=== PATIENT | male | born 1970 | race Caucasian/White ===

== ENCOUNTER 2016-12-22 06:09 | Day surgery (SDC) | payer OTHER ==
[2016-12-22] MEDS ORDERED: ceFAZolin 1 GM VIAL ONE (06:26)
[2016-12-22] MEDS ORDERED: LACTATED RINGERS 1,000 ML IV ONE ×2 (06:57→09:02)
[2016-12-22] MEDS ORDERED: LIDOCAINE-MPF 2% 5 ML VIAL IM ONE (07:36)
[2016-12-22] MEDS ORDERED: PROPOFOL 200 MG/20 ML VIAL IVP ONE (07:36)
[2016-12-22] MEDS ORDERED: DEXAMETHASONE 4 MG/ML VIAL IVP ONE (07:36)
[2016-12-22] MEDS ORDERED: HYDROmorphone 1 MG/ML SYRINGE IVP ONE (07:36)
[2016-12-22] MEDS ORDERED: METOCLOPRAMIDE 10 MG/2 ML VIAL IVP ONE (07:36)
[2016-12-22] MEDS ORDERED: SUCCINYLCHOLINE 200 MG/10 ML VIAL IVP ONE (07:36)
[2016-12-22] MEDS ORDERED: MIDAZOLAM 2 MG/2 ML VIAL IVP ONE (07:36)
[2016-12-22] MEDS ORDERED: PHENYLEPHRINE 50 MG/5 ML VIAL IV ONE (07:36)
[2016-12-22] MEDS ORDERED: GLYCOPYRROLATE 1 MG/5 ML VIAL IVP ONE (07:36)
[2016-12-22] MEDS ORDERED: NEOSTIGMINE 1 MG/1 ML 10 ML MDV IVP ONE (07:36)
[2016-12-22] MEDS ORDERED: ROCURONIUM 50 MG/5 ML VIAL IVP ONE (07:36)
[2016-12-22] MEDS ORDERED: KETOROLAC 30 MG/ML VIAL IVP ONE (07:36)
[2016-12-22] MEDS ORDERED: BUPIVACAINE 0.5% PF 30 ML VIAL INFIL ONE ×2 (08:14)
[2016-12-22] MEDS ORDERED: SODIUM CHLORIDE 0.9% 1,000 ML IV ONE (09:02)
[2016-12-22] MEDS: fentaNYL 100 MCG/2 ML VIAL ONE ×2 (09:45→09:50)
[2016-12-22] MEDS ORDERED: oxyCOD/ACETAMIN 5 MG/325 MG TABLET PO ONE (10:12)
== END 2016-12-22 06:10 | disposition home or self-care (01) ==
PROC: 0YU54JZ Supplement Right Inguinal Region with Synthetic Substitute, Percutaneous Endoscopic Approach (ICD-10-PCS; principal; 2016-12-22 07:30)
DX: K40.90 Unilateral inguinal hernia, without obstruction or gangrene, not specified as recurrent (principal); I10 Essential (primary) hypertension; F17.210 Nicotine dependence, cigarettes, uncomplicated; Z82.49 Family history of ischemic heart disease and other diseases of the circulatory system; Z83.3 Family history of diabetes mellitus
CPT/HCPCS: 49650; A9270; C1781; J1170; J7120

== ENCOUNTER 2018-02-01 08:00 | Outpatient (CLI) | payer OTHER ==
[2018-02-01 12:32] LABS: BASOPHILS # (AUTO) 0.1 10^3/uL (0.0-0.1); BASOPHILS % (AUTO) 0.9 %; EOSINOPHILS # (AUTO) 0.4 10^3/uL (0.0-0.7); EOSINOPHILS % (AUTO) 4.6 %; HGB - HEMOGLOBIN 14.5 g/dL (14.0-18.0); LYMPHOCYTES # (AUTO) 2.7 10^3/uL (1.5-3.5); LYMPHOCYTES % (AUTO) 29.7 %; MEAN CORPUSCULAR HEMOGLOBIN 28.4 pg (27.0-31.0); MEAN CORPUSCULAR HGB CONC 33.5 g/dL (32.0-36.0); MEAN CORPUSCULAR VOLUME 84.8 fL (80.0-94.0); MEAN PLATELET VOLUME 9.7 fL (7.4-11.4); MONOCYTES # (AUTO) 0.5 10^3/uL (0.0-1.0); MONOCYTES % (AUTO) 5.6 %; NEUTROPHILS # (AUTO) 5.4 10^3/uL (1.5-6.6); NEUTROPHILS % (AUTO) 59.2 %; PLT - PLATELET COUNT 251 10^3/uL (130-450); RED BLOOD COUNT 5.11 10^6/uL (4.70-6.10); RED CELL DISTRIBUTION WIDTH 13.1 % (12.0-15.0); WHITE BLOOD COUNT 9.1 x10^3/uL (4.8-10.8)
[2018-02-01 12:38] LABS: ALBUMIN 4.5 g/dL (3.2-5.5); ALBUMIN/GLOBULIN RATIO 1.3 (1.0-2.2); ALKALINE PHOSPHATASE 42 IU/L (42-121); ALT ALANINE AMINOTRANSFERASE 21 IU/L (10-60); AST ASPARTATE AMINOTRANSFERASE 17 IU/L (10-42); BILIRUBIN,TOTAL 0.5 mg/dL (0.2-1.0); BUN - BLOOD UREA NITROGEN 20 mg/dL (6-20); CALCIUM 9.4 mg/dL (8.5-10.3); CARBON DIOXIDE - CO2 26 mmol/L (21-32); CHLORIDE 101 mmol/L (101-111); CHOL/HDL RATIO 6.1 (<5.0); CHOLESTEROL 221 mg/dL; CREATININE 0.9 mg/dL (0.6-1.2); GFR - MDRD 91 (>89); GLUCOSE 104 mg/dL (70-100); HDL CHOLESTEROL 36 mg/dL; LDL CHOLESTEROL,CALCULATED 155 mg/dL; LDL/HDL RATIO 4.3 (<3.6); SODIUM 135 mmol/L (135-145); VLDL CHOLESTEROL 30 mg/dL
== END 2018-02-01 08:01 | disposition home or self-care (01) ==
LOC: LAB.WCP 08:00
PROVIDERS: ATTEND Family Medicine
DX: I10 Essential (primary) hypertension (principal); Z79.899 Other long term (current) drug therapy
CPT/HCPCS: 36415; 80053; 80061; 83721; 84443; 85025

== ENCOUNTER 2019-02-10 09:08 | Emergency (ER) | payer OTHER ==
[2019-02-10] MEDS ORDERED: IOVERSOL 320 100 ML VIAL IVP ONE ×3 (09:09→18:01)
[2019-02-10 09:45] LABS: BASOPHILS # (AUTO) 0.1 10^3/uL (0.0-0.1); BASOPHILS % (AUTO) 1.1 %; EOSINOPHILS # (AUTO) 0.4 10^3/uL (0.0-0.7); EOSINOPHILS % (AUTO) 4.9 %; HGB - HEMOGLOBIN 13.8 g/dL (14.0-18.0); LYMPHOCYTES % (AUTO) 33.7 %; MEAN CORPUSCULAR HEMOGLOBIN 28.2 pg (27.0-31.0); MEAN CORPUSCULAR HGB CONC 33.2 g/dL (32.0-36.0); MEAN CORPUSCULAR VOLUME 84.8 fL (80.0-94.0); MEAN PLATELET VOLUME 8.7 fL (7.4-11.4); MONOCYTES # (AUTO) 0.7 10^3/uL (0.0-1.0); MONOCYTES % (AUTO) 7.6 %; NEUTROPHILS # (AUTO) 4.7 10^3/uL (1.5-6.6); NEUTROPHILS % (AUTO) 52.7 %; PLT - PLATELET COUNT 244 10^3/uL (130-450); RED CELL DISTRIBUTION WIDTH 13.3 % (12.0-15.0)
--- NOTE | 2019-02-10 10:05 | XRAY Report ---
Reason: chest pain Procedure Date: 02/10/2019 Accession Number: [id number] / [id number] Procedure: XR - Chest 1 View X-Ray CPT Code: 19547 FULL RESULT: EXAM: CHEST RADIOGRAPHY EXAM DATE: 02/10/2019 09:33 AM. CLINICAL HISTORY: Chest pain radiating to left arm. COMPARISON: XR CHEST 1 VIEWS 01/27/2011 1:19 AM. TECHNIQUE: 1 view. FINDINGS: Lungs/Pleura: Lung volumes are diminished compared to last exam. No focal consolidation identified. Some minimal linear opacity at the left base could represent atelectasis. Mediastinum: Within exam limitations, the cardiomediastinal contour is normal. Other: None. IMPRESSION: 1. Possible mild linear atelectasis at the left base. 2. Low lung volumes. RADIA
--- NOTE | 2019-02-10 10:05 | ED Physician Documentation ---
PD HPI CHEST PAIN - Stated complaint Stated Complaint: CHEST PAIN - Chief complaint Chief Complaint: Cardiac - History obtained from History obtained from: Patient - History of Present Illness Timing - onset: Today Timing - onset during: Light activity (getting ready for work) Timing - duration: Hours (1) Timing - details: Abrupt onset, Still present Quality: Tightness, Aching, Sharp (left anterior chest pain, sharp with movement and breathing, but pressure feeling along with it.). No: Pressure Location: Left chest Radiation: No: Jaw, Neck, Back Worsened by: Inspiration, Movement. No: Palpation Associated symptoms: Shortness of air, Diaphoresis, Nausea, Feeling faint / dizzy. No: Palpitations Similar symptoms before: Has not had sx before Recently seen: Not recently seen Review of Systems Constitutional: denies: Fever, Chills, Myalgias Nose: denies: Rhinorrhea / runny nose, Congestion Throat: denies: Sore throat Cardiac: reports: Chest pain / pressure, Other (recent motorcycle trip for 4-5 days.). denies: Palpitations, Pedal edema, Calf pain Respiratory: reports: Dyspnea. denies: Cough, Wheezing PD PAST MEDICAL HISTORY - Past Medical History Past Medical History: Yes Cardiovascular: Hypertension Respiratory: None Endocrine/Autoimmune: None GI: None : None HEENT: Chronic vision loss, Other Psych: None Musculoskeletal: None Derm: None - Past Surgical History Past Surgical History: Yes Ortho: Other - Present Medications Home Medications: Ambulatory Orders Medication Instructions Recorded Confirmed Lisinopril 20 mg PO BID 12/18/16 02/10/19 Hydrocodone/Acetaminophen [[place] 1 each PO Q6H PRN #15 tablet 02/10/19 5-325 Tablet] - Allergies Allergies/Adverse Reactions: Allergies Allergy/AdvReac Type Severity Reaction Status Date / Time No Known Drug Allergies Allergy Verified 02/10/19 09:17 - Social History Does the pt smoke?: No Smoking Status: Never smoker Does the pt drink ETOH?: Yes Does the pt have substance abuse?: No - Immunizations Immunizations are current?: Yes - POLST Patient has POLST: No PD ED PE NORMAL - Vitals Vital signs reviewed: Yes - General General: Alert and oriented X 3, Well developed/nourished, Other (appears in pain with splinting of breathing moderately. Holding left chest. ) - HEENT HEENT: Moist mucous membranes, Pharynx benign - Neck Neck: Supple, no meningeal sign, No adenopathy - Cardiac Cardiac: RRR, No murmur - Respiratory Respiratory: Clear bilaterally, Other (no chestwall tenderness) - Abdomen Abdomen: Soft, Non tender - Derm Derm: Normal color, Warm and dry, No rash - Extremities Extremities: Normal ROM s pain, No edema, No calf tenderness / cord - Neuro Neuro: Alert and oriented X 3, No motor deficit, Normal speech Eye Opening: Spontaneous Motor: Obeys Commands Verbal: Oriented GCS Score: 15 - Psych Psych: Normal mood Results - Vitals Vitals: Vital Signs - 24 hr 02/10/19 02/10/19 02/10/19 09:15 10:01 12:48 Temperature 36.4 C L Heart Rate 84 76 77 Respiratory 20 14 16 Rate Blood Pressure 155/88 H 148/88 H 107/79 O2 Saturation 98 96 97 Oxygen O2 Source Room air - EKG (time done) 09:09 Rate: Rate (enter#) (95) Rhythm: NSR [place]: Normal Intervals: Normal [place] QRS: Normal Ischemia: Normal ST segments. No: ST elevation c/w ischemia, ST depression Compare to prior EKG: Old EKG unavailable - Labs Labs: Laboratory Tests 02/10/19 02/10/19 02/10/19 09:28 09:28 09:28 WBC 9.0 RBC 4.90 Hgb 13.8 L Hct 41.6 L MCV 84.8 MCH 28.2 MCHC 33.2 RDW 13.3 Plt Count 244 MPV 8.7 Neut # (Auto) 4.7 Lymph # (Auto) 3.0 [place] # (Auto) 0.7 Eos # (Auto) 0.4 Baso # (Auto) 0.1 Absolute Nucleated RBC 0.00 Nucleated RBC % 0.0 Sodium 137 Potassium 3.8 Chloride 101 Carbon Dioxide 25 Anion Gap 11.0 BUN 15 Creatinine 0.9 Estimated GFR (MDRD) 90 Glucose 113 H Calcium 9.8 Total Bilirubin 0.5 AST 17 ALT 20 Alkaline Phosphatase 47 Troponin I < 0.04 Total Protein 8.1 Albumin 4.5 Globulin 3.6 Albumin/Globulin Ratio 1.3 Lipase 26 02/10/19 11:48 WBC RBC Hgb Hct MCV MCH MCHC RDW Plt Count MPV Neut # (Auto) Lymph # (Auto) [place] # (Auto) Eos # (Auto) Baso # (Auto) Absolute Nucleated RBC Nucleated RBC % Sodium Potassium Chloride Carbon Dioxide Anion Gap BUN Creatinine Estimated GFR (MDRD) Glucose Calcium Total Bilirubin AST ALT Alkaline Phosphatase Troponin I < 0.04 Total Protein Albumin Globulin Albumin/Globulin Ratio Lipase - Rads (name of study) chest xray Radiology: Prelim report reviewed (some atelectasis lower left), See rad report chest CT angio Radiology: Prelim report reviewed (no PEs nor other acute process. ), See rad report PD MEDICAL DECISION MAKING - ED course Complexity details: reviewed results (chest xray, labs, CT chest are all okay. Presume pleurisy or musculoskeletal. ), considered differential (will evaluate for serious causes of the left chest pain. Had recent motorcycle trip for days, and has abrupt pleuritic chest pain, will need to consider PE.), d/w patient Departure - Departure Disposition: 01 Home, Self Care Clinical Impression: Chest pain, rule out acute myocardial infarction Chest pain Qualifiers: Chest pain type: chest pain on breathing Qualified Code(s): R07.1 - Chest pain on breathing Condition: Stable Record reviewed to determine appropriate education?: Yes Instructions: ED Chest Pain Pleurisy Prescriptions: Hydrocodone/Acetaminophen [[place] 5-325 Tablet] 1 each PO Q6H PRN #15 tablet PRN Reason: Pain Comments: Stay well-hydrated. Use some anti-inflammatory such as naproxen or ibuprofen 2- 3 times a day for the next 5 to 7 days. Take with food so it does not bother her stomach. Add Tylenol or hydrocodone if needed for pain. I presume your pain is from inflammation in the musculoskeletal system or on the surface of the lung (pleurisy). There is no signs of more serious causes based on your blood tests and imaging test today. There is no signs of heart attack, blood clots, pneumonia, collapsed lung, vascular problems, etc. Recheck with your primary care if the pain has not improved however over the next several days to week. Discharge Date/Time: 02/10/19 12:48
[2019-02-10] MEDS ORDERED: MORPHINE 10 MG/ML VIAL IVP STA (10:23)
[2019-02-10] MEDS ORDERED: KETOROLAC 30 MG/ML VIAL IVP STA (10:23)
[2019-02-10 10:46] LABS: ALBUMIN 4.5 g/dL (3.2-5.5); ALBUMIN/GLOBULIN RATIO 1.3 (1.0-2.2); BILIRUBIN,TOTAL 0.5 mg/dL (0.2-1.0); CALCIUM 9.8 mg/dL (8.5-10.3); CREATININE 0.9 mg/dL (0.6-1.2); TOTAL PROTEIN 8.1 g/dL (6.7-8.2)
--- NOTE | 2019-02-10 11:30 | CT Report ---
Reason: left chest pain today; recent trip Procedure Date: 02/10/2019 Accession Number: [id number] / [id number] Procedure: CT - ANGIO CHEST W/WO CPT Code: FULL RESULT: EXAM: CT ANGIOGRAM CHEST EXAM DATE: 02/10/2019 11:07 AM. CLINICAL HISTORY: Left chest pain. Recent trip. Possible pulmonary emboli. COMPARISON: CHEST 1 VIEW 02/10/2019 9:22 AM. TECHNIQUE: Routine helical imaging was performed through the chest in the pulmonary arterial phase. IV Contrast: 86 mL Isovue 320. Reconstructions: Coronal 3-D MIP reconstructions.Sagittal and coronal. In accordance with CT protocol optimization, one or more of the following dose reduction techniques were utilized for this exam: automated exposure control, adjustment of mA and/or KV based on patient size, or use of iterative reconstructive technique. FINDINGS: Pulmonary Arteries: Diagnostic quality: Adequate through the segmental arteries. No evidence for acute or chronic pulmonary emboli. RV/LV is within normal limits. There is no interventricular septal bowing. There is no reflux of contrast material in the IVC. Lungs/Pleura: No focal parenchymal consolidation or pleural effusion. There is an incidental 10 mm diameter perifissural nodule within the minor fissure of no clinical significance. Mediastinum: Normal. No cardiac enlargement or adenopathy. Thoracic Aorta: Unremarkable. Upper Abdomen: Unremarkable. Other: None. IMPRESSION: 1. Normal CT pulmonary angiogram. 2. Benign small perifissural nodule minor fissure of no significance. RADIA
[2019-02-10] MEDS ORDERED: DEXAMETHASONE 10 MG/ML VIAL IVP STA (12:34)
[2019-02-10] MEDS ORDERED: ACETAMINOPHEN 325 MG TABLET PO STA (12:34)
[2019-02-10 12:49] VITALS: BP 107/79
== END 2019-02-10 12:48 | disposition home or self-care (01) ==
LOC: ED 09:08
DX: R07.89 Other chest pain (principal); R07.1 Chest pain on breathing; I10 Essential (primary) hypertension
CPT/HCPCS: 36415; 71045; 71275; 80053; 83690; 84484; 85025; 93005; 96374; 96375; 99283; A9270; Q9967

== ENCOUNTER 2021-08-06 08:00 | Outpatient (CLI) | payer OTHER ==
[2021-08-06 12:22] LABS: BASOPHILS # (AUTO) 0.1 10^3/uL (0.0-0.1); BASOPHILS % (AUTO) 1.1 %; EOSINOPHILS # (AUTO) 0.3 10^3/uL (0.0-0.7); EOSINOPHILS % (AUTO) 3.3 %; HCT - HEMATOCRIT 43.1 % (42.0-52.0); HGB - HEMOGLOBIN 13.7 g/dL (14.0-18.0); LYMPHOCYTES # (AUTO) 2.6 10^3/uL (1.5-3.5); LYMPHOCYTES % (AUTO) 27.8 %; MEAN CORPUSCULAR HEMOGLOBIN 28.1 pg (27.0-31.0); MEAN CORPUSCULAR HGB CONC 31.8 g/dL (32.0-36.0); MEAN CORPUSCULAR VOLUME 88.3 fL (80.0-94.0); MEAN PLATELET VOLUME 11.1 fL (7.4-11.4); MONOCYTES # (AUTO) 0.6 10^3/uL (0.0-1.0); MONOCYTES % (AUTO) 5.9 %; NEUTROPHILS # (AUTO) 5.7 10^3/uL (1.5-6.6); NEUTROPHILS % (AUTO) 61.6 %; PLT - PLATELET COUNT 291 10^3/uL (130-450); RED BLOOD COUNT 4.88 10^6/uL (4.70-6.10); RED CELL DISTRIBUTION WIDTH 12.9 % (12.0-15.0); WHITE BLOOD COUNT 9.3 x10^3/uL (4.8-10.8)
[2021-08-06 12:45] LABS: ALBUMIN 4.5 g/dL (3.2-5.5); ALBUMIN/GLOBULIN RATIO 1.3 (1.0-2.2); ALKALINE PHOSPHATASE 54 IU/L (42-121); ALT ALANINE AMINOTRANSFERASE 21 IU/L (10-60); AST ASPARTATE AMINOTRANSFERASE 14 IU/L (10-42); BILIRUBIN,TOTAL 0.3 mg/dL (0.2-1.0); BUN - BLOOD UREA NITROGEN 23 mg/dL (6-20); CALCIUM 9.9 mg/dL (8.5-10.3); CARBON DIOXIDE - CO2 27 mmol/L (21-32); CHLORIDE 101 mmol/L (101-111); CHOL/HDL RATIO 5.7 (<5.0); CHOLESTEROL 232 mg/dL; CREATININE 0.8 mg/dL (0.6-1.2); GFR - MDRD 103 (>89); GLUCOSE 114 mg/dL (70-100); HDL CHOLESTEROL 41 mg/dL; LDL CHOLESTEROL,CALCULATED 174 mg/dL; LDL/HDL RATIO 4.2 (<3.6); POTASSIUM 4.1 mmol/L (3.5-5.0); SODIUM 139 mmol/L (135-145); TOTAL PROTEIN 8.1 g/dL (6.7-8.2); TRIGLYCERIDES 83 mg/dL; VLDL CHOLESTEROL 17 mg/dL
== END 2021-08-06 08:01 | disposition home or self-care (01) ==
LOC: LAB.WCP 08:00
PROVIDERS: ATTEND Family Medicine
DX: I10 Essential (primary) hypertension (principal); E78.5 Hyperlipidemia, unspecified; Z12.5 Encounter for screening for malignant neoplasm of prostate
CPT/HCPCS: 36415; 80053; 80061; 83721; 84153; 85025

== ENCOUNTER 2021-08-24 11:44 | Emergency (ER) | payer OTHER ==
[2021-08-24 12:14] LABS: BASOPHILS # (AUTO) 0.1 10^3/uL (0.0-0.1); EOSINOPHILS # (AUTO) 0.3 10^3/uL (0.0-0.7); EOSINOPHILS % (AUTO) 2.5 %; HGB - HEMOGLOBIN 13.6 g/dL (14.0-18.0); LYMPHOCYTES # (AUTO) 3.1 10^3/uL (1.5-3.5); LYMPHOCYTES % (AUTO) 27.4 %; MEAN CORPUSCULAR HEMOGLOBIN 29.1 pg (27.0-31.0); MEAN CORPUSCULAR VOLUME 85.7 fL (80.0-94.0); MEAN PLATELET VOLUME 10.4 fL (7.4-11.4); MONOCYTES # (AUTO) 0.7 10^3/uL (0.0-1.0); MONOCYTES % (AUTO) 5.8 %; NEUTROPHILS # (AUTO) 7.2 10^3/uL (1.5-6.6); PLT - PLATELET COUNT 289 10^3/uL (130-450); RED BLOOD COUNT 4.67 10^6/uL (4.70-6.10); RED CELL DISTRIBUTION WIDTH 12.5 % (12.0-15.0); WHITE BLOOD COUNT 11.4 x10^3/uL (4.8-10.8)
[2021-08-24] MEDS ORDERED: DEXAMETHASONE 10 MG/ML VIAL IVP STA (12:20)
[2021-08-24] MEDS ORDERED: KETOROLAC 30 MG/ML VIAL IVP STA (12:20)
--- NOTE | 2021-08-24 12:24 | XRAY Report ---
PROCEDURE: Chest 1 View X-Ray INDICATIONS: Chest pain TECHNIQUE: One view of the chest was acquired. COMPARISON: 02/10/2019 FINDINGS: Surgical changes and devices: None. Lungs and pleura: No pleural effusions or pneumothorax. Lungs are clear. Mediastinum: Mediastinal contours appear normal. Heart size is normal. Bones and chest wall: No suspicious bony lesions. Overlying soft tissues appear unremarkable. IMPRESSION: No acute cardiopulmonary process demonstrated radiographically. Reviewed by: Trever Cedeno MD on 08/24/2021 12:23 PM PST Approved by: Trever Cedeno MD on 08/24/2021 12:23 PM PST Station ID: [id number]
--- NOTE | 2021-08-24 12:26 | ED Physician Documentation ---
PD HPI CHEST PAIN - Stated complaint Stated Complaint: L ARM NUMB, NAUSEA - Chief complaint Chief Complaint: Cardiac - History obtained from History obtained from: Patient - History of Present Illness Timing - onset: How many months ago (1) Timing - onset during: Rest Timing - duration: Months (1) Timing - details: Gradual onset, Still present Quality: Sharp, Pain Location: Left chest Radiation: Left upper extremity Improved by: Nothing Worsened by: Other (nothing) Associated symptoms: Nausea, Feeling faint / dizzy. No: Shortness of air, Diaphoresis, Vomiting, General Weakness, Palpitations, Cough Similar symptoms before: Diagnosis (atypical chest pain) Recently seen: Clinic - Additional information Additional information: 50-year-old male reports a pain to his left anterior chest and radiation of this pain down his arm with numbness to the arm. He points to the upper lateral chest wall and over his shoulder. He denies any prior injury to his neck. He has had similar symptoms for the past several months and these usually do not last continuously. He has had continuous pain since yesterday and he felt several times that he had some diaphoresis associated with this he did not develop shortness of breath. Review of Systems Constitutional: denies: Fever Ears: denies: Ear pain Nose: denies: Congestion Throat: denies: Sore throat Cardiac: reports: Chest pain / pressure. denies: Palpitations, Pedal edema, Calf pain Respiratory: denies: Dyspnea, Cough, Wheezing GI: reports: Nausea. denies: Abdominal Pain, Vomiting, Constipation, Diarrhea : denies: Dysuria, Frequency PD PAST MEDICAL HISTORY - Past Medical History Cardiovascular: Hypertension, High cholesterol Respiratory: None Endocrine/Autoimmune: None GI: None : None HEENT: Chronic vision loss, Other Psych: None Musculoskeletal: None Derm: None - Past Surgical History Past Surgical History: Yes Ortho: Other - Present Medications Home Medications: Ambulatory Orders Medication Instructions Recorded Confirmed Lisinopril 20 mg PO BID 12/18/16 08/24/21 Hydrocodone/Acetaminophen [[place] 1 each PO Q6H PRN #15 tablet 02/10/19 5-325 Tablet] Atorvastatin [Lipitor] 20 mg PO DAILY 08/24/21 08/24/21 - Allergies Allergies/Adverse Reactions: Allergies Allergy/AdvReac Type Severity Reaction Status Date / Time No Known Drug Allergies Allergy Verified 08/24/21 11:54 - Social History Does the pt smoke?: No Smoking Status: Never smoker Does the pt drink ETOH?: Yes Does the pt have substance abuse?: No - Immunizations Immunizations are current?: Yes - POLST Patient has POLST: No PD ED PE NORMAL - Vitals Vital signs reviewed: Yes (hypertensive ) - General General: Alert and oriented X 3, No acute distress, Well developed/nourished - HEENT HEENT: Atraumatic, PERRL, EOMI - Neck Neck: Supple, no meningeal sign, No bony TTP - Cardiac Cardiac: RRR, No murmur - Respiratory Respiratory: No respiratory distress, Clear bilaterally, Other (no chest wall point tenderness) - Abdomen Abdomen: Soft, Non tender - Back Back: No CVA TTP, No spinal TTP - Derm Derm: Normal color, Warm and dry, No rash - Extremities Extremities: No deformity, No edema, Other (full ROM to the LUE without exacerbation of pain or numbness) - Neuro Neuro: Alert and oriented X 3, materials technician 2-12 intact, No motor deficit, No sensory deficit, Normal speech Eye Opening: Spontaneous Motor: Obeys Commands Verbal: Oriented GCS Score: 15 - Psych Psych: Normal mood, Normal affect Results - Vitals Vitals: Vital Signs - 24 hr 08/24/21 08/24/21 08/24/21 11:45 11:57 14:04 Temperature 37.2 C 36.3 C L Heart Rate 85 90 81 Respiratory 15 21 18 Rate Blood Pressure 139/83 H 139/83 H 120/75 O2 Saturation 97 100 97 Oxygen O2 Source Room air - EKG (time done) 1152 Rate: Rate (enter#) (88) Ischemia: ST elevation c/w repol (isolated to V4) Compare to prior EKG: Unchanged from prior EKG (SPT 02-10-2019 no changes) Computer interpretation: Agree with computer - Labs Labs: Laboratory Tests 08/24/21 08/24/21 08/24/21 12:05 12:05 12:05 WBC 11.4 H RBC 4.67 L Hgb 13.6 L Hct 40.0 L MCV 85.7 MCH 29.1 MCHC 34.0 RDW 12.5 Plt Count 289 MPV 10.4 Neut # (Auto) 7.2 H Lymph # (Auto) 3.1 [place] # (Auto) 0.7 Eos # (Auto) 0.3 Baso # (Auto) 0.1 Absolute Nucleated RBC 0.00 Nucleated RBC % 0.0 D-Dimer Sodium 133 L Potassium 3.8 Chloride 99 L Carbon Dioxide 24 Anion Gap 10.0 BUN 16 Creatinine 0.8 Estimated GFR (MDRD) 103 Glucose 112 H Calcium 9.5 Total Bilirubin 0.7 AST 16 ALT 22 Alkaline Phosphatase 49 Troponin I High Sens 2.4 Total Protein 8.0 Albumin 4.7 Globulin 3.3 Albumin/Globulin Ratio 1.4 Lipase 22 08/24/21 12:54 WBC RBC Hgb Hct MCV MCH MCHC RDW Plt Count MPV Neut # (Auto) Lymph # (Auto) [place] # (Auto) Eos # (Auto) Baso # (Auto) Absolute Nucleated RBC Nucleated RBC % D-Dimer < 200.0 L Sodium Potassium Chloride Carbon Dioxide Anion Gap BUN Creatinine Estimated GFR (MDRD) Glucose Calcium Total Bilirubin AST ALT Alkaline Phosphatase Troponin I High Sens Total Protein Albumin Globulin Albumin/Globulin Ratio Lipase - Rads (name of study) chest Radiology: Prelim report reviewed (Impression: No acute cardiopulmonary process demonstrated radiographically.), EMP read indepedently, See rad report PD MEDICAL DECISION MAKING - ED course Complexity details: reviewed results, re-evaluated patient, considered differential, d/w patient ED course: 50-year-old male with numbness to the left arm and hand pain to the left anterior chest does not have point tenderness or modifiable factors to his chest pain. I suspect his pain is coming from his neck and his cardiac work-up is entirely negative including electrocardiogram troponin and D-dimer as well as chest x-ray. The patient has had the symptoms previously a number of times with a shorter timeframe. He is administered dexamethasone and Toradol here in the emergency department he has some slight improvement. Departure - Departure Disposition: 01 Home, Self Care Clinical Impression: Cervical radiculopathy, Atypical chest pain Condition: Stable Instructions: ED Chest Pain Atypical Unkn Cause, ED Cervical Radiculopathy Follow-Up: Marianne Melo DO [Primary Care Provider] - Comments: Quang today there is no evidence that the pain you are having in your chest is related to your heart. It is likely related to a pinched nerve in your neck and this pinched nerve resulting in some numbness to your left arm. The pain associated with this can sometimes be severe. You have been given some dexamethasone which may improve your condition temporarily. A follow-up for MRI of your neck is indicated and you will require a referral from your primary care doctor for this. Follow-up with Dr. Melo Discharge Date/Time: 08/24/21 14:12
[2021-08-24 12:38] LABS: ALBUMIN 4.7 g/dL (3.2-5.5); ALBUMIN/GLOBULIN RATIO 1.4 (1.0-2.2); BILIRUBIN,TOTAL 0.7 mg/dL (0.2-1.0); CALCIUM 9.5 mg/dL (8.5-10.3); CREATININE 0.8 mg/dL (0.6-1.2); POTASSIUM 3.8 mmol/L (3.5-5.0)
[2021-08-24 14:05] VITALS: BP 120/75
== END 2021-08-24 14:12 | disposition home or self-care (01) ==
LOC: ED 11:44
DX: M54.12 Radiculopathy, cervical region (principal); R07.89 Other chest pain; I10 Essential (primary) hypertension; E78.00 Pure hypercholesterolemia, unspecified
CPT/HCPCS: 36415; 80053; 83690; 84484; 85025; 85379; 93005; 96374; 99284

== ENCOUNTER 2022-10-07 20:24 | Emergency (ER) | payer OTHER ==
--- NOTE | 2022-10-07 20:44 | ED Physician Documentation ---
History of Present Illness - Stated complaint Stated Complaint: CONSTIPATED - Chief complaint Chief Complaint: Abd Pain - Additonal information Additional information: 51-year-old male presents emergency department for evaluation of constipation. Reports symptoms started 2 weeks ago. The first 2 days after not having a bowel movement he tried [id number] laxatives but they did not work so he began taking MiraLAX; two glass full a day for the last week. He states that despite taking this he is only having liquid output but not what he would have expected in terms of stool formation. He is also beginning to have some left-sided abdominal pain and low back pain and subjective fevers He has never had a colonoscopy; he missed his screening colonoscopy 2 years ago due to pandemic. Past medical history significant for hypertension. He is not anticoagulated. Review of Systems Constitutional: reports: Reviewed and negative Cardiac: reports: Reviewed and negative Respiratory: reports: Reviewed and negative GI: reports: Abdominal Pain, Constipation. denies: Bloody / black stool : reports: Reviewed and negative Skin: reports: Reviewed and negative Musculoskeletal: reports: Reviewed and negative PD PAST MEDICAL HISTORY - Past Medical History Cardiovascular: Hypertension, High cholesterol Respiratory: None Endocrine/Autoimmune: None GI: None : None HEENT: Chronic vision loss, Other Psych: None Musculoskeletal: None Derm: None - Past Surgical History Past Surgical History: Yes Ortho: Other - Present Medications Home Medications: Ambulatory Orders Medication Instructions Recorded Confirmed Lisinopril 20 mg PO BID 12/18/16 10/07/22 Atorvastatin [Lipitor] 20 mg PO DAILY 08/24/21 10/07/22 Metoprolol Succinate 100 mg PO DAILY 10/07/22 10/07/22 amLODIPine [Norvasc] 5 mg PO DAILY 10/07/22 10/07/22 hydroCHLOROthiazide [Hydrodiuril] 12.5 mg PO DAILY 10/07/22 10/07/22 - Allergies Allergies/Adverse Reactions: Allergies Allergy/AdvReac Type Severity Reaction Status Date / Time No Known Drug Allergies Allergy Verified 10/07/22 21:00 - Social History Does the pt smoke?: No Smoking Status: Never smoker Does the pt drink ETOH?: Yes Does the pt have substance abuse?: No - Immunizations Immunizations are current?: Yes - POLST Patient has POLST: No PD ED PE NORMAL - General General: Alert and oriented X 3, No acute distress, Well developed/nourished - HEENT HEENT: Atraumatic, Moist mucous membranes - Neck Neck: Supple, no meningeal sign, No adenopathy - Cardiac Cardiac: RRR, No murmur - Respiratory Respiratory: No respiratory distress, Clear bilaterally - Abdomen Abdomen: Normal bowel sounds, Soft. No: Non tender (Mild tenderness in the left lower quadrant without guarding or rebound. No flank or CVA tenderness elicited) - Male Male : Foam Rubber Curer present - Rectal Rectal: Other (No stool felt in the rectal vault. Nontender exam) - Derm Derm: Normal color, Warm and dry - Extremities Extremities: No deformity - Neuro Neuro: Alert and oriented X 3 Eye Opening: Spontaneous Motor: Obeys Commands Verbal: Oriented GCS Score: 15 Results - Vitals Vitals: Vital Signs - 24 hr 10/07/22 10/07/22 10/07/22 20:28 20:32 21:04 Temperature 36.4 C L 36.5 C Heart Rate 107 H 107 H 97 Respiratory 18 18 18 Rate Blood Pressure 163/103 H 163/103 H 154/98 H O2 Saturation 99 99 99 Oxygen O2 Source Room air - Labs Labs: Laboratory Tests 10/07/22 10/07/22 10/07/22 20:44 20:44 21:27 WBC 11.5 H RBC 4.86 Hgb 13.3 L Hct 41.4 L MCV 85.2 MCH 27.4 MCHC 32.1 RDW 12.8 Plt Count 287 MPV 9.9 Neut # (Auto) 6.9 H Lymph # (Auto) 3.5 [place] # (Auto) 0.7 Eos # (Auto) 0.2 Baso # (Auto) 0.1 Absolute Nucleated RBC 0.00 Nucleated RBC % 0.0 Sodium 133 L Potassium 3.8 Chloride 94 L Carbon Dioxide 21 Anion Gap 18.0 H BUN 18 Creatinine 0.9 Estimated GFR (MDRD) 89 Glucose 95 Calcium 9.7 Total Bilirubin 0.7 AST 20 ALT 29 Alkaline Phosphatase 53 Total Protein 8.4 H Albumin 4.7 Globulin 3.7 Albumin/Globulin Ratio 1.3 Lipase 24 Urine Color YELLOW Urine Clarity CLEAR Urine pH 6.0 Ur Specific [place] 1.020 Urine Protein NEGATIVE Urine Glucose (UA) NEGATIVE Urine Ketones NEGATIVE Urine Occult Blood NEGATIVE Urine Nitrite NEGATIVE Urine Bilirubin NEGATIVE Urine Urobilinogen 0.2 (NORMAL) Ur Leukocyte Esterase NEGATIVE Ur Microscopic Review NOT INDICATED Urine Culture Comments NOT INDICATED PD Medical Decision Making - ED course Complexity details: reviewed results, re-evaluated patient, considered differential, d/w patient ED course: 51-year-old male presents emergency department for reported constipation that began 2 weeks ago. Initially unresolved with [id number] stool softeners so he began taking MiraLAX twice daily for the last week. He states he simply having liquid output from his rectum but not formed stools as he would anticipate. He is also began to have some left-sided abdominal pain and low back pain. No fevers. He has never received a screening colonoscopy. On exam he has only a very mildly tender left lower quadrant. I did do a chaperoned rectal exam and there was no stool felt in the vault. His CBC and electrolytes per my interpretation show no acute worrisome findings. His urinalysis showed no signs of infection. We will obtain a CT scan for further differentiation of his reported constipation, left lower quadrant abdominal pain and subjective Fevers. The differential at this time includes but is not limited to diverticulitis, ureteral colic, constipation, acute cystitis. 2200: Patient will be signed out to my nighttime colleague to follow-up on the results of the CT scan. Pending no acute worrisome abnormalities the patient will be stable for discharge home with recommendation to follow-up closely with his PCP for referral for colonoscopy Departure - Departure Clinical Impression: Left lower quadrant abdominal pain Condition: Stable Record reviewed to determine appropriate education?: Yes Comments: You are seen in the emergency department today because you had reported some constipation for the last 2 weeks. You have been using MiraLAX for the last week with only liquid output. Over the last few days you have Developed some left lower quadrant abdominal pain, low back pain. Here in the emergency department we did obtain a CBC and electrolytes and there were no acute worrisome findings. It is important that you discuss this ED visit with your primary care provider. You should be referred now for a screening colonoscopy for further evaluation of your reported constipation as well as to ensure that there are no polyps or masses that could be contributing to your new gastrointestinal symptoms
[2022-10-07 20:50] LABS: BASOPHILS # (AUTO) 0.1 10^3/uL (0.0-0.1); BASOPHILS % (AUTO) 0.8 %; EOSINOPHILS # (AUTO) 0.2 10^3/uL (0.0-0.7); EOSINOPHILS % (AUTO) 1.6 %; HCT - HEMATOCRIT 41.4 % (42.0-52.0); HGB - HEMOGLOBIN 13.3 g/dL (14.0-18.0); LYMPHOCYTES # (AUTO) 3.5 10^3/uL (1.5-3.5); LYMPHOCYTES % (AUTO) 30.7 %; MEAN CORPUSCULAR HEMOGLOBIN 27.4 pg (27.0-31.0); MEAN CORPUSCULAR HGB CONC 32.1 g/dL (32.0-36.0); MEAN CORPUSCULAR VOLUME 85.2 fL (80.0-94.0); MEAN PLATELET VOLUME 9.9 fL (7.4-11.4); MONOCYTES # (AUTO) 0.7 10^3/uL (0.0-1.0); MONOCYTES % (AUTO) 6.3 %; NEUTROPHILS # (AUTO) 6.9 10^3/uL (1.5-6.6); NEUTROPHILS % (AUTO) 60.2 %; PLT - PLATELET COUNT 287 10^3/uL (130-450); RED BLOOD COUNT 4.86 10^6/uL (4.70-6.10); RED CELL DISTRIBUTION WIDTH 12.8 % (12.0-15.0); WHITE BLOOD COUNT 11.5 x10^3/uL (4.8-10.8)
[2022-10-07 21:03] LABS: ALBUMIN 4.7 g/dL (3.2-5.5); ALBUMIN/GLOBULIN RATIO 1.3 (1.0-2.2); BILIRUBIN,TOTAL 0.7 mg/dL (0.2-1.0); CALCIUM 9.7 mg/dL (8.5-10.3); CREATININE 0.9 mg/dL (0.6-1.2); POTASSIUM 3.8 mmol/L (3.5-5.0); TOTAL PROTEIN 8.4 g/dL (6.7-8.2)
[2022-10-07] MEDS ORDERED: iohexoL-300 100 ML VIAL ONE (21:23)
[2022-10-07 21:34] LABS: BILIRUBIN,URINE NEGATIVE (NEGATIVE); GLUCOSE, URINE (UA) NEGATIVE (NEGATIVE); KETONES,URINE (UA) NEGATIVE (NEGATIVE); LEUKOCYTE ESTERASE, URINE NEGATIVE (NEGATIVE); NITRITE,URINE NEGATIVE (NEGATIVE); OCCULT BLOOD,URINE NEGATIVE (NEGATIVE); PROTEIN,URINE NEGATIVE (NEGATIVE); UROBILINOGEN,URINE 0.2 (NORMAL) E.U./dL (NORMAL)
[2022-10-07 21:37] LABS: CLARITY,URINE CLEAR (CLEAR)
[2022-10-07] MEDS ORDERED: iohexoL-300 100 ML VIAL IVP ONE (21:50)
--- NOTE | 2022-10-07 22:31 | CT Report ---
PROCEDURE: ABDOMEN/PELVIS W INDICATIONS: constipation; now liquid stools CONTRAST: Omni 300 100ml TECHNIQUE: After the administration of intravenous contrast, 5 mm thick sections acquired from the diaphragms to the symphysis. 5 mm thick coronal and sagittal reformats were acquired. For radiation dose reducti on, the following was used: automated exposure control, adjustment of mA and/or kV according to dayday ent size. COMPARISON: None. FINDINGS: Image quality: Excellent. Lung bases:There is a left lower lobe pulmonary nodule measuring up to 0.4 cm in series 4 image 1. T here are also 0.2 cm pulmonary nodules demonstrated on series 4 images 27 and 15. Heart: Heart is normal in size. ABDOMEN: Liver: No mass lesion. Gallbladder: Within normal limits without calcified gallstones. Biliary ducts: No biliary ductal dilatation. Pancreas: Unremarkable. Spleen: Normal in size. Adrenal Glands: No adrenal nodules. Kidneys and Ureters: No hydronephrosis. Stomach and Bowel: Stomach, small bowel loops, and colon are normal in caliber and wall thickness. T he appendix is normal in appearance. There is colonic diverticulosis without acute diverticulitis. Peritoneum: No abnormal intraperitoneal fluid. No free air. Ventral Wall: No hernia. Abdominal Nodes: No retroperitoneal or mesenteric adenopathy by size criteria. Vessels: Aorta and inferior vena cava are normal in size. PELVIS: Pelvic Organs: Unremarkable. Bladder: Unremarkable. Pelvic Nodes: No enlarged lymph nodes. Miscellaneous: No inguinal hernias. Bones: Visualized osseous structures demonstrate no suspicious lesions. IMPRESSION: 1. No evidence of bowel obstruction. 2. Colonic diverticulosis without acute diverticulitis. 2. No evidence of appendicitis. Reviewed by: Kasi Aguirre MD on 10/07/2022 10:30 PM PST Approved by: Kasi Aguirre MD on 10/07/2022 10:30 PM PST Station ID: [id number]
--- NOTE | 2022-10-07 22:38 | ED Physician Documentation ---
ED Addendum - Addendum Addendum: 10/07/22 22:36 Patient was signed out to me awaiting CT scan. CT scan does not show any acute abnormalities. Laboratory testing was also reviewed including a CBC, CMP, lipase and urinalysis. Patient has a mild leukocytosis, but no other significant abnormalities. Patient will follow-up with his PCP for a colonoscopy and further evaluation of his symptoms. Patient counseled regarding signs and symptoms for which I believe and urgent re-evaluation would be necessary. Patient with good understanding of and agreement to plan and is comfortable going home at this time This document was made in part using voice recognition software. While efforts are made to proofread this document, sound alike and grammatical errors may occur. Departure - Departure Clinical Impression: Left lower quadrant abdominal pain Condition: Good Instructions: ED Abdominal Pain Unkn Cause Male Follow-Up: Your,doctor in 1 week [Other] Comments: You are seen in the emergency department today because you had reported some constipation for the last 2 weeks. You have been using MiraLAX for the last week with only liquid output. Over the last few days you have Developed some left lower quadrant abdominal pain, low back pain. Here in the emergency department we did obtain a CBC and electrolytes and there were no acute worrisome findings. It is important that you discuss this ED visit with your primary care provider. You should be referred now for a screening colonoscopy for further evaluation of your reported constipation as well as to ensure that there are no polyps or masses that could be contributing to your new gastrointestinal symptoms CT scan abdomen pelvis: FINDINGS: Image quality: Excellent. Lung bases: There is a left lower lobe pulmonary nodule measuring up to 0.4 cm in series 4 image 1. There are also 0.2 cm pulmonary nodules demonstrated on series 4 images 27 and 15. Heart: Heart is normal in size. ABDOMEN: Liver: No mass lesion. Gallbladder: Within normal limits without calcified gallstones. Biliary ducts: No biliary ductal dilatation. Pancreas: Unremarkable. Spleen: Normal in size. Adrenal Glands: No adrenal nodules. Kidneys and Ureters: No hydronephrosis. Stomach and Bowel: Stomach, small bowel loops, and colon are normal in caliber and wall thickness. The appendix is normal in appearance. There is colonic diverticulosis without acute diverticulitis. Peritoneum: No abnormal intraperitoneal fluid. No free air. Ventral Wall: No hernia. Abdominal Nodes: No retroperitoneal or mesenteric adenopathy by size criteria. Vessels: Aorta and inferior vena cava are normal in size. PELVIS: Pelvic Organs: Unremarkable. Bladder: Unremarkable. Pelvic Nodes: No enlarged lymph nodes. Miscellaneous: No inguinal hernias. Bones: Visualized osseous structures demonstrate no suspicious lesions. IMPRESSION: 1. No evidence of bowel obstruction. 2. Colonic diverticulosis without acute diverticulitis. 2. No evidence of appendicitis.
[2022-10-07 22:44] VITALS: BP 130/82
== END 2022-10-07 22:43 | disposition home or self-care (01) ==
LOC: ED 20:24
DX: R10.32 Left lower quadrant pain (principal); I10 Essential (primary) hypertension; Z79.899 Other long term (current) drug therapy
CPT/HCPCS: 36415; 74177; 80053; 81003; 83690; 85025; 99284; Q9967; 81001; 87086